=== PATIENT | female | born 1995 | race Asian ===

== ENCOUNTER → 2017-03-09 | Outpatient (CLI) | payer OTHER ==
[2017-03-09 10:28] LABS: BASO % 0.1 %; BASO ABS # 0.01 K/uL (0-0.2); COMPLETE YES; EOS % 0.7 %; GIANT PLATELETS 1+; HEMATOCRIT 31.5 % (37-47); IG% 1.4 %; LYMPH % 19.9 %; LYMPH ABS # 1.87 K/uL (1.2-3.4); MEAN CELL VOLUME 90.3 fL (80-100); MEAN CORPUSCULAR HEMOGLOBIN 31.2 pg (25-34); MEAN CORPUSCULAR HGB CONC 34.6 g/dl (32-36); MEAN PLATELET VOLUME 14.1 fL (7.4-10.4); MONO % 5.6 %; NEUT % 72.3 %; PLATELET COUNT 108 K/uL (130-400); PLT ESTIMATE DECREASED; RED BLOOD COUNT 3.49 M/uL (4.2-5.4)
== END | disposition home or self-care (01) ==
LOC: C.LAB 08:46
PROVIDERS: ATTEND Obstetrics & Gynecology
DX: Z34.02 Encounter for supervision of normal first pregnancy, second trimester (principal)

== ENCOUNTER → 2017-03-10 | Outpatient (CLI) | payer OTHER ==
[2017-03-10 17:45] LABS: URINE APPEARANCE CLEAR (CLEAR); URINE BILIRUBIN NEG (NEG); URINE COLOR YELLOW; URINE EPITHELIAL CELL AUTO >30 /lpf (0-5); URINE NITRITE NEG (NEG); UROBILINOGEN NEG (NEG)
[2017-03-10 17:52] LABS: MANUAL MICROSCOPIC REQUIRED? NO; REVIEW REQ? NO
== END | disposition home or self-care (01) ==
LOC: C.LABSPEC 12:52
PROVIDERS: ATTEND Obstetrics & Gynecology
DX: Z34.02 Encounter for supervision of normal first pregnancy, second trimester (principal); Z3A.00 Weeks of gestation of pregnancy not specified

== ENCOUNTER → 2017-03-23 | Outpatient (CLI) | payer OTHER ==
[2017-03-23 17:29] LABS: HEMATOCRIT 30.6 % (37-47)
[2017-03-23 18:33] LABS: GTGD 50 Grams
== END | disposition home or self-care (01) ==
LOC: C.LAB1850 16:14
PROVIDERS: ATTEND Obstetrics & Gynecology
DX: Z34.02 Encounter for supervision of normal first pregnancy, second trimester (principal)

== ENCOUNTER → 2017-03-23 | Outpatient (CLI) | payer OTHER ==
[2017-03-28 03:03] LABS: CHLAMYDIA TRACH RNA*** NOT DETECTED (NOT DETECTED); GC (NEIS GONORRHOEAE)RNA** NOT DETECTED (NOT DETECTED)
== END | disposition home or self-care (01) ==
LOC: C.LABSPEC 10:21
PROVIDERS: ATTEND Obstetrics & Gynecology
DX: Z34.02 Encounter for supervision of normal first pregnancy, second trimester (principal)

== ENCOUNTER 2017-05-23 04:08 | Inpatient (IN) | payer OTHER ==
[~2017-05-23] VITALS: Ht 149.9 cm; Wt 61.7 kg
[2017-05-23] MEDS ORDERED: LACTATED RINGER'S 1000ML 1,000 ML IV SCH (04:40)
[2017-05-23] MEDS ORDERED: LACTATED RINGER'S 1000ML 1,000 ML IV PRN (04:40)
[2017-05-23] MEDS ORDERED: PENICILLIN G POTASSIUM IV 3 MU in DEXTROSE 5% 100ML 100 ML IV PRN (04:45)
[2017-05-23] MEDS ORDERED: PENICILLIN G POTASSIUM IV 6 MU in DEXTROSE 5% 250ML 250 ML IV ONE (04:45)
[2017-05-23] MEDS ORDERED: FOLI1TAB8 PO (05:15)
[2017-05-23] MEDS ORDERED: CALC500C70 PO (05:15)
[2017-05-23] MEDS ORDERED: PATIENT'S ALLERGY INFO NEEDS ENTERED SCH (05:15)
[2017-05-23] MEDS ORDERED: FERR1TAB23 (05:15)
[2017-05-23 05:18] VITALS: Ht 149.9 cm; Wt 61.7 kg
[2017-05-23 06:27] LABS: HEMATOCRIT 31.4 % (37-47); MEAN CELL VOLUME 89.5 fL (80-100); MEAN CORPUSCULAR HEMOGLOBIN 30.8 pg (25-34); MEAN CORPUSCULAR HGB CONC 34.4 g/dl (32-36); MEAN PLATELET VOLUME 14.1 fL (7.4-10.4); PLATELET COUNT 94 K/uL (130-400); RED BLOOD COUNT 3.51 M/uL (4.2-5.4); WHITE BLOOD COUNT 13.22 K/uL (4.8-10.8)
[2017-05-23 06:28] LABS: PLT ESTIMATE DECREASED
[2017-05-23] MEDS ORDERED: OXYTOCIN 30 UNITS/500ML NSS IV ONE (07:35)
[2017-05-23] MEDS ORDERED: HYDROCORTISONE ACETATE 25 MG SUPP PR PRN (09:30)
[2017-05-23] MEDS ORDERED: IBUPROFEN 600 MG TAB PO PRN (09:30)
[2017-05-23] MEDS ORDERED: LANOLIN OINT EXT PRN ×2 (09:30)
[2017-05-23] MEDS ORDERED: OXYTOCIN 30 UNITS/500ML NSS IV PRN (09:30)
[2017-05-23] MEDS ORDERED: ACETAMINOPHEN/CODEINE 300/30MG TAB PO PRN ×2 (09:30)
[2017-05-23] MEDS ORDERED: ACETAMINOPHEN 325 MG TAB PO PRN (09:30)
[2017-05-23] MEDS ORDERED: BENZOCAINE 20% AER SPR 82.5 GM CAN EXT PRN (09:30)
[2017-05-23] MEDS ORDERED: SUPERCREAM 0.870 % 15GM JAR EXT PRN (09:30)
--- NOTE | 2017-05-23 09:30 | DELIVERY SUMMARY ---
DATE OF OPERATION: 05/23/2017 The patient is a 22-year-old 2, para 0-0-1-0 white female EDC of [birth year]/2017 who presented in active labor. She progressed to full dilation unmedicated and pushed effectively over a median episiotomy. The rest of the infant delivered easily and the was placed on mother's abdomen for further warming and attention and was vigorous, crying and the infant was moving all 4 limbs at delivery. The placenta was expressed intact with a 3-vessel cord. A second degree median episiotomy was repaired with 3-0 chromic and approximately 40 mL of 1% lidocaine. Estimated blood loss was 300 mL. Mother and are doing well. Tolerated the procedure well. I attest to the content of the Intraoperative Record and any orders documented therein. Any exception s are noted below.
[2017-05-23 12:52] VITALS: BP 109/69; PULSE 83; TEMP 37.5; O2SAT 97
[2017-05-23 15:36] VITALS: BP 95/63; PULSE 78; TEMP 37.4; O2SAT 99
[2017-05-23 19:35] VITALS: BP 96/61; PULSE 79; TEMP 36.8
[2017-05-23] MEDS: DOCUSATE SODIUM 100 MG CAP PO SCH (20:00)
[2017-05-23 23:00] VITALS: BP 105/67; PULSE 83; TEMP 36.7; O2SAT 99
[2017-05-24 06:46] LABS: HEMATOCRIT 29.2 % (37-47)
--- NOTE | 2017-05-24 07:23 | Progress Note ---
Subjective May 24, 2017. Subjective conversation w/ patient, physical exam, chart review, lab review Ambulation: ambulating normally Voiding: no voiding problems Passing Gas: Yes Diet Tolerance: Regular Diet Lochia: Moderate Feeding Type: Breast Feeding Pain: CONTROLLED Review of Systems Respiratory: No shortness of breath Abdomen: No nausea, No vomiting Female : No dysuria Objective Vital Signs Date Time Temp Pulse Resp B/P (MAP) Pulse Ox O2 Delivery O2 Flow Rate FiO2 05/23/17 23:00 99 Room Air 05/23/17 23:00 36.7 83 18 105/67 (80) Room Air 05/23/17 19:35 36.8 79 20 96/61 (73) Room Air 05/23/17 15:36 37.4 78 18 95/63 (74) 99 Room Air 05/23/17 13:05 Room Air 05/23/17 12:52 37.5 83 18 109/69 (82) 97 Room Air Physical Exam General Appearance: WELL-APPEARING, WD/WN, NO APPARENT DISTRESS Respiratory/Chest: lungs clear, normal breath sounds, no respiratory distress Cardiovascular: regular rate, rhythm, no gallop Abdomen: normal bowel sounds, soft Fundus: Firm, Non-Tender, Relation to Umbilicus (1 BELOW U) Laboratory Results Last 24 Hours Test 05/24/17 06:34 Hemoglobin 9.7 g/dL Hematocrit 29.2 % Assessment and Plan Post- Day#: 1 Continue Routine Care: Resident Physician Supervision Note: I interviewed and examined the patient. Discussed with Dr. Stewart and agree with findings and plan as documented in the note. Any exceptions or clarifications are listed here: [None] Documented By: Graciela Kenny 22 yof delivered 38-1 with second deg tear B-/GBS+/RI Vitals reviewed and wnl. Hgb, 10.8, 9.7. No s/s anemia. Pt doing well clinically, is using no pain medication. Desires to go home, although counselled that since she is GBS+ and baby will need monitoring, likely DC tomorrow. Continue routine post care, encourage ambulation/ support. DAR STEWART FMR PGY 1 Resident Tracking Resident Involvement: Resident Care Provided Care Provided: OB Delivery
[2017-05-24 07:35] VITALS: BP 101/67; PULSE 74; TEMP 36.9
[2017-05-24] MEDS: DOCUSATE SODIUM 100 MG CAP PO SCH ×2 (08:24→20:34)
[2017-05-24] MEDS: FERROUS SULFATE 325 MG TAB PO SCH (08:24)
[2017-05-24] MEDS: PRENATAL VITAMIN TAB PO SCH (08:24)
[2017-05-24 09:15] VITALS: BP 101/67; PULSE 74; TEMP 36.8; O2SAT 98
[2017-05-24 16:00] VITALS: BP 102/67; PULSE 66; TEMP 36.3
[2017-05-24 23:50] VITALS: BP 100/64; PULSE 83; TEMP 36.9
--- NOTE | 2017-05-25 07:16 | Progress Note ---
Subjective May 25, 2017. Subjective conversation w/ patient, physical exam, chart review, lab review Ambulation: ambulating normally Voiding: no voiding problems Passing Gas: Yes Diet Tolerance: Regular Diet Lochia: Moderate Feeding Type: Breast Feeding Pain: controlled, unmedicated Review of Systems Respiratory: No shortness of breath Female : No dysuria Objective Vital Signs Date Time Temp Pulse Resp B/P (MAP) Pulse Ox O2 Delivery O2 Flow Rate FiO2 05/24/17 23:50 Room Air 05/24/17 23:50 36.9 83 20 100/64 (76) Room Air 05/24/17 16:00 36.3 66 18 102/67 (79) Room Air 05/24/17 15:45 Room Air 05/24/17 09:15 36.8 74 16 101/67 (78) 98 Room Air 05/24/17 07:35 36.9 74 16 101/67 (78) Room Air 05/24/17 07:35 Room Air Physical Exam General Appearance: WELL-APPEARING, WD/WN, NO APPARENT DISTRESS Respiratory/Chest: lungs clear, normal breath sounds, no respiratory distress Cardiovascular: regular rate, rhythm, no gallop Abdomen: normal bowel sounds, soft Fundus: Firm, Non-Tender, Relation to Umbilicus (2 below U) Extremities: non-tender, normal inspection Assessment and Plan Post- Day#: 2 Continue Routine Care: 22 yof delivered 38-1 with second deg tear B-/GBS+/RI Vitals reviewed and wnl. Hgb, 10.8, 9.7. No s/s anemia. Pt doing well clinically, is using no pain medication. Desires to go home, counselled on dc instructions. translated, pt verbalized understanding. Continue routine post care, encourage ambulation/ support. DAR STEWART FMR PGY 1 Resident Physician Supervision Note: I was present with Dr. Stewart during the history and exam. I discussed the case with the resident and agree with the findings and plan as documented in the note. Any exceptions or clarifications are listed here: PPD#2 doing well. Discharge instructions reviewed. RTO 6w. Documented By: Catarina Jarvis Resident Tracking Resident Involvement: Resident Care Provided Care Provided: OB Delivery
--- NOTE | 2017-05-25 07:17 | Discharge Instructions ---
Discharge Instructions Date of Service May 25, 2017. Admission Reason for Admission: LABOR Discharge Discharge Diagnosis / Problem: Spontaneous vaginal delivery Discharge Goals Goal(s): Routine recovery after delivery Medications Continue Dispensed Medications: supercream, dermaplast, tucks, lansinoh Activity Recommendations Activity Limitations: per Instructions/Follow-up section . Instructions / Follow-Up Instructions / Follow-Up SCHEDULE 6 WEEK FOLLOW UP APPOINTMENT WITH DR. LI. ACTIVITY RECOMMENDATIONS: * Gradual return to full activity over the next 2-3 weeks. * No lifting - nothing heavier than baby over the next 2-3 weeks. * Do not engage in vigorous exercise, sexual activity or sports until cleared by your physician. * Do not drive or operate any motorized equipment until cleared by your physician. * You may shower/bathe daily. MEDICATIONS: For discomfort or pain, you may use Acetaminophen (Tylenol), Ibuprofen (Advil), or Naproxen (Aleve) following the package directions. For constipation you may use Colace following the package directions. BREAST CARE: If you are not breast feeding: * Wear a supportive bra 24 hours a day for one to two weeks. * Avoid stimulating your breasts and nipples as much as possible during the first few weeks after delivery. * When taking a shower, have the warm water hit your back, not breasts. * When your breasts feel full, apply ice packs. Usually three to four times a day helps ease the discomfort. * Take a mild pain medication (Tylenol / Motrin) when you are uncomfortable. If breast feeding: * Use breast milk to lubricate nipples. Lansinoh cream may be used for sore nipples. You do not need to remove cream prior to breast feeding. If using a different brand of cream, check the label for directions regarding removal of cream prior to nursing. * Wear a supportive bra. * If having problems with breasts or breast feeding, call a program consultant or your health care provider. EPISIOTOMY CARE: After delivery, if you have an episiotomy (stitches), the following steps will ease discomfort and aid healing. * For the first 24 hours after delivery, place ice packs next to your episiotomy to help reduce swelling. * After the first 24 hour-period, sitz baths, either portable or in the tub, are suggested. A shower with a shower arm sprayed over the episiotomy may be comforting. * [place] care should be done after each voiding and bowel movement. Squirt warm water from a plastic bottle over the perineum (region of the body between the anus and urinary opening) and pat dry. * Use Dermoplast to ease discomfort. Shake container. [place] directly over the episiotomy. Place a Tucks on a clean sanitary pad next to your episiotomy. SPECIAL CARE INSTRUCTIONS: When you are discharged from the hospital, it is important for you to follow the instructions listed below: * During the first week at home, you should be able to care for yourself and your baby. In addition, the usual light household activities are encouraged. * Limit your activities to the way you feel. Do not try to clean the house or move furniture. Be sensible. * If you actively engage in sports and have done so up until the time of your delivery, you may resume these activities as soon as you feel able. This may take up to one month or even longer. Use good judgment. * Continue to take your vitamins for at least six weeks after the of your baby. * Your diet need not be limited unless you were on a special diet before your delivery. Breast-feeding mothers need around 2500 calories per day and at least 64-80 ounces of fluid per day (8 to 10 glasses). * You should eat foods from the four major food groups. Crash diets or fad diets are to be avoided. Eating lean meats, fresh fruits and vegetables, low-fat dairy products, high fiber foods and a regular exercise program, will help you get back to your pre- weight without putting your health at risk. * Constipation is sometimes a problem after delivery. Take a mild laxative as needed. If breast feeding, Milk of Magnesia is acceptable to use. You may use a suppository or Fleets enema if no episiotomy. * A daily shower or tub bath is suggested. Be sure to thoroughly and gently dry the perineum. * A bloody vaginal discharge will usually continue until around four weeks post . A small amount of bleeding may continue for as long as six weeks. Vaginal discharge changes from the bright red bleeding after delivery to pink then brownish and finally yellowish-pink before becoming white and disappearing. * Bleeding may increase with activity. Your first period may come in 4-8 weeks. If you are breast feeding, your period may be delayed even longer. * [place] (sex) can begin whenever both you and your partner feel comfortable and do not have any form of genital infection. It is recommended that you wait at least six weeks for internal and external healing to occur. If you have questions, please talk to your health care practitioner. A condom should be used to prevent infection and . * Foreplay, gentle intercourse and lubrication is very important the first several times to prevent pain. A water-based lubricant such as K-Y jelly or Astroglide may be used. * If you have RH negative blood and your baby is RH positive, you will receive RHOGAM by injection prior to discharge. The nurse will give you a card to keep with you that has the date and place that you received RHOGAM after delivery. * During your care, you had a Rubella screen done to check for the presence of rubella antibodies in your blood. If your test was negative, you will receive a Rubella vaccine prior to discharge. This vaccine may cause a fever, soreness at the injection site and flu-like symptoms. If these symptoms persist, notify your health care practitioner. is not advised for one month after a Rubella vaccine. * Verbalizes understanding of car seat law as reviewed with patient nursing. * Car Seat hand-out given and reviewed with patient by nursing. * Shaken baby information reviewed with patient by nursing. Call you doctor if: * Heavy bleeding (saturating several pads an hour) or passing clots the size of your fist. * A fever >101 degrees F (38.3 degrees C) on two occasions four hours apart and /or chills. * Unusual pain in the pelvic or vaginal areas. * "Baby Blues" lasting longer than two weeks. If you have any questions or concerns, call your health care practitioner at . FOLLOW UP VISIT: * Please call the office at to schedule a 6 week examination. It is important you keep this appointment. It is important for you to make arrangements for either yearly or twice yearly check-ups thereafter. Current Hospital Diet Patient's current hospital diet: Regular OB Diet Discharge Diet Recommended Diet: Regular OB Diet Pending Studies Studies pending at discharge: no Medical Emergencies . Who to Call and When: Medical Emergencies: If at any time you feel your situation is an emergency, please call 911 immediately. . Non-Emergent Contact Non-Emergency issues call your: Primary Care Provider . . "Provider Documentation" section prepared by Cecy Stewart. . VTE Core Measure Inpt VTE Proph given/why not?: Treatment not indicated
[2017-05-25] MEDS: DOCUSATE SODIUM 100 MG CAP PO SCH (08:28)
[2017-05-25] MEDS: PRENATAL VITAMIN TAB PO SCH (08:29)
[2017-05-25] MEDS: FERROUS SULFATE 325 MG TAB PO SCH (08:29)
[2017-05-25 09:30] VITALS: BP 102/70; PULSE 69; TEMP 36.8; O2SAT 98
[2017-05-25 11:25] VITALS: BP_DIAS 70; PULSE 69; TEMP 36.8
== END 2017-05-25 12:30 | disposition home or self-care (01) | DRG 775 ==
LOC: C.LD 04:08 → C.OPB 04:08 → C.LD 04:41 → C.OPB 04:41 → C.OBG 12:44
PROVIDERS: ADMIT Obstetrics & Gynecology; ATTEND Obstetrics & Gynecology
PROC: 0W8NXZZ Division of Female Perineum, External Approach (ICD-10-PCS; principal; 2017-05-23)
PROC: 0KQM0ZZ Repair Perineum Muscle, Open Approach (ICD-10-PCS; principal; 2017-05-23)
PROC: 10E0XZZ Delivery of Products of Conception, External Approach (ICD-10-PCS; principal; 2017-05-23)
DX: O70.1 Second degree perineal laceration during delivery (principal); O99.824 Streptococcus B carrier state complicating childbirth; Z37.0 Single live birth; Z3A.38 38 weeks gestation of pregnancy